=== PATIENT | female | born 1960 | race African-American/Black ===

== ENCOUNTER 2017-02-13 12:38 | Emergency (ER) | payer SELFPAY ==
[~2017-02-13] VITALS: Ht 162.6 cm; Wt 60.0 kg
[2017-02-13 12:39] VITALS: BP 110/76
== END 2017-02-13 16:59 | disposition left against medical advice (07) ==
LOC: ER 12:56
DX: Z04.3 Encounter for examination and observation following other accident (principal); Z53.21 Procedure and treatment not carried out due to patient leaving prior to being seen by health care provider